=== PATIENT | male | born 1960 | race Hispanic/Latino ===

== ENCOUNTER 2020-06-01 09:46 | Outpatient (CLI) | payer OTHER ==
--- NOTE | 2020-06-01 11:25 | Cat Scan Report ---
CT HEAD WITHOUT CONTRAST INDICATION / CLINICAL INFORMATION: PATIENT IS S/P PITUITARY. TECHNIQUE: Axial imaging performed from the skull apex through the skull base without the use of cont rast. Sagittal and coronal reformatted images. All CT scans at this location are performed using CT dose reduction for ALARA by means of automated exposure control. COMPARISON: None available. FINDINGS: CEREBRAL PARENCHYMA: No significant abnormality. No acute territorial infarct. HEMORRHAGE: None. EXTRA-AXIAL SPACES: Normal in size and morphology for the patient's age. VENTRICULAR SYSTEM: Normal in size and morphology for the patient's age. MIDLINE SHIFT OR HERNIATION: None. CEREBELLUM / BRAINSTEM: No significant abnormality. CALVARIUM: No significant abnormality. ORBITS: Normal as visualized. PARANASAL SINUSES / MASTOID AIR CELLS: Normal as visualized. SOFT TISSUES of HEAD: No significant abnormality. 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 No obvious sellar mass or abnormality is appreciated on noncontrast CT. IMPRESSION: No acute intracranial abnormality. Previous transsphenoidal surgery is suspected in the sella turcica . No obvious recurrent sellar abnormality. If further evaluation is needed, MRI brain pituitary vic col with contrast is recommended. Signer Name: Zak Ruiz Jr, MD Signed: 06/01/2020 11:21 AM Workstation Name: [id number]
== END 2020-06-01 09:47 | disposition home or self-care (01) ==
LOC: CT 09:46
PROVIDERS: ATTEND Psychiatry & Neurology Psychiatry
DX: Z03.89 Encounter for observation for other suspected diseases and conditions ruled out (principal); G96.0 Cerebrospinal fluid leak
CPT/HCPCS: 70450